=== PATIENT | male | born 1995 | race Two or more races ===

== ENCOUNTER 2022-07-22 02:24 | Emergency (ER) | payer OTHER ==
[~2022-07-22] VITALS: Ht 167.6 cm; Wt 83.9 kg
== END 2022-07-22 11:51 | disposition home or self-care (01) ==
LOC: ER 02:24
DX: K52.9 Noninfective gastroenteritis and colitis, unspecified (principal)

== ENCOUNTER 2024-02-18 21:38 | Emergency (ER) | payer OTHER ==
[~2024-02-18] VITALS: Ht 167.6 cm; Wt 81.6 kg
[2024-02-19] MEDS ORDERED: KETOROLAC TROMETHAMINE 60 MG VIAL IM STA (02:18)
[2024-02-19] MEDS ORDERED: KETO10TA2 PO (02:28)
== END 2024-02-19 03:12 ==
LOC: ER 21:39
DX: R22.2 Localized swelling, mass and lump, trunk (principal); R07.89 Other chest pain

== ENCOUNTER → 2025-01-29 | Emergency (ER) | payer OTHER ==
[~2025-01-29] VITALS: Ht 167.6 cm; Wt 83.9 kg
[~2025-01-29] MED LIST: 0.9 % SODIUM CHLORIDE 500 ML IV STA; ACETAMINOPHEN 500 MG GEL..CAP PO ONE; ACETAMINOPHEN500 M1 PO; BENZONATATE 100 MG CAPSULE PO STA; GILTUSS COUGH-118 M1 PO; KETO10TA2 PO; ONDANSETRON HCL 2 MG/ML VIAL IV STA; ONDANSETRON HCL 2 MG/ML VIAL ONE; OSEL75CA PO; OSELTAMIVIR PHOSPHATE 75 MG CAPSULE PO ONE
[2025-01-29 21:13] LABS: BASO % 0.4 % (0.1-1.2); EOS # 0.01 (0.04-0.54); EOS % 0.2 % (0.7-7.0); HEMATOCRIT 44.3 % (40.1-51.0); HEMOGLOBIN 14.9 g/dL (13.7-17.5); LYMPH # 1.89 (1.18-3.74); LYMPH % 33.8 % (19.3-53.1); MEAN CORPUSCULAR HEMOGLOBIN 27.2 pg (25.6-32.2); MONO # 0.57 (0.24-0.82); MONO % 10.2 % (4.7-12.5); NEUT % 55.2 % (34.0-71.1); RED BLOOD COUNT 5.48 M/uL (4.63-6.08); RED CELL DISTRIBUTION WIDTH 12.9 % (11.6-14.4)
[2025-01-29 21:15] LABS: PLATELET COUNT 104 K/uL (163-369)
[2025-01-29 21:37] LABS: ALBUMIN 4.1 gm/dL (3.4-5.0); BILIRUBIN TOTAL 0.24 mg/dL (0.3-1.2); CALCIUM 9.2 mg/dL (8.5-10.1); CREATININE SERUM 0.95 mg/dL (0.70-1.30); GFR 91.87; GLOBULINA 4.8 G/DL (2.4-3.5); POTASSIUM 3.92 mEq/L (3.5-5.1); TOTAL PROTEIN 8.9 gm/dL (6.4-8.2)
[2025-01-29 22:08] LABS: COVID-19 AG NEGATIVE (NEGATIVE)
[2025-01-29 22:09] LABS: INFLUENZA A AG NEGATIVE (NEGATIVE); INFLUENZA B AG POSITIVE (NEGATIVE)
== END | disposition home or self-care (01) ==
LOC: ER 16:04
PROVIDERS: Preventive Medicine Public Health & General Preventive Medicine
DX: J10.1 Influenza due to other identified influenza virus with other respiratory manifestations (principal); Z20.822 Contact with and (suspected) exposure to COVID-19